=== PATIENT | male | born 1990 | race Caucasian/White ===

== ENCOUNTER 2019-10-22 19:18 | Emergency (ER) | payer SELFPAY ==
[2019-10-22 19:28] VITALS: BP 153/83; PULSE 98; RESP 16; TEMP 36.9; O2SAT 98
--- NOTE | 2019-10-22 19:32 | ED.SKABFB ---
HPI - Skin/Abscess/Foreign Bdy General Chief complaint: Skin/Abscess/Foreign Body Stated complaint: Infection on left leg Time Seen by Provider: 10/22/19 19:32 Source: patient and RN notes reviewed History of Present Illness HPI narrative: Patient is a 29-year-old male that presents the urgent care with complaints of a left lower leg infection. Patient states that he works for [employer] and last he hit his left madden on a metal plate on the back of the truck. Patient states is initially started out as a small scratch and now has increased redness and pain to the area. Patient denies any known drainage, fever, nausea, vomiting. Patient states that he is used hydrocortisone and an antibiotic cream to the area. No other acute complaints. Patient states he is up-to-date on tetanus. No acute distress noted. Patient aware the plan of care. Related Data Allergies Allergy/AdvReac Type Severity Reaction Status Date / Time No Known Allergies Allergy Mild Verified 10/22/19 19:33 Review of Systems Review of Systems: Narrative: CONSTITUTIONAL: Denies fever, chills, or sweats. EYES: Denies visual changes, redness, or discharge. ENT: Denies rhinorrhea, congestion, sore throat, or otalgia. CARDIOVASCULAR: Denies chest pain, palpitations, or edema. RESPIRATORY: Denies cough or dyspnea. GASTROINTESTINAL: Denies abdominal pain, nausea, vomiting, or diarrhea. GENITOURINARY: Denies dysuria or hematuria. SKIN: Reports of left lower leg redness/pain and scabbing MUSCULOSKELETAL: Denies back pain, joint pain, or myalgia. NEUROLOGIC: Denies headache, numbness, or weakness. All other systems reviewed are negative, except as documented in HPI. PMFSH Comments At the time of my signature, I reviewed and agree with the nursing past medical, surgical, social, and family history. There is no relevant family history pertinent to the patient complaint. Exam Narrative: Exam Narrative: GENERAL: This is a well-nourished, well-developed patient, in no apparent distress. HEAD: normocephalic, atraumatic. EYES: PERRL. Sclera clear/white. Vision is grossly intact. EARS: External ears normal NOSE: External nose normal with no obvious nasal discharge THROAT: Mucous membranes moist NECK: Neck supple CARDIOVASCULAR: Regular rate and rhythm without murmurs, gallops, or rubs. RESPIRATORY: Clear to auscultation. Breath sounds equal bilaterally. No wheezes, rales, or rhonchi. SKIN: Open wound noted to the left lower leg, with scant serosanguineous yellow draining, with a 4.5 x 3.5 cm surrounding erythema and scattered scabbing to the center. NEURO: awake, alert, and oriented to person, place and time. There were no obvious focal neurologic abnormalities. EXTREMITIES: No clubbing, cyanosis, or edema. No joint tenderness, effusion, or edema noted. No calf tenderness. Negative Homans sign on the left Course Vital Signs Vital signs: Vital Signs Temperature 98.4 F 10/22/19 19:28 Pulse Rate 98 10/22/19 19:28 Respiratory Rate 16 10/22/19 19:28 Blood Pressure 153/83 H 10/22/19 19:28 Pulse Oximetry 98 10/22/19 19:28 Temperature 98.4 F 10/22/19 19:28 Pulse Rate 98 10/22/19 19:28 Respiratory Rate 16 10/22/19 19:28 Blood Pressure 153/83 H 10/22/19 19:28 Pulse Oximetry 98 10/22/19 19:28 Reviewed?patient is informed that they may have pre-hypertension or hypertension based on a blood pressure reading in the department. I recommend the patient call the primary care provider listed on their discharge instructions or a physician of their choice this week to arrange follow-up for further evaluation of possible pre-hypertension or hypertension. MDM - Skin/Abscess/Foreign Bdy MDM Narrative Medical decision making narrative: Advised the patient to use the antibiotic cream as directed to the area twice a day. Wear long pants while working. Cover the wound as necessary or if at risk of being soiled. Complete oral antibiotic regimen as prescribed. M
== END 2019-10-22 19:46 | disposition home or self-care (01) ==
PROVIDERS: Emergency Provider Nurse Practitioner Family
DX: L03.116 Cellulitis of left lower limb (principal)
CPT/HCPCS: 99213; G0463